=== PATIENT | female | born 1960 | race Hispanic/Latino ===

== ENCOUNTER 2018-12-31 09:56 | Emergency (ER) | payer OTHER ==
[2018-12-31] MEDS ORDERED: TETANUS/DIPHTHERIA TOXOID [ADULT] 0.5 ML VIAL IM ONE (10:16)
[2018-12-31 10:20] LABS: BASOPHILS % (AUTO) 2.2 % (0.0-5.0); EOSINOPHILS % (AUTO) 2.5 % (0.0-8.0); LYMPHOCYTES % (AUTO) 40.3 % (21.0-51.0); MEAN CORPUSCULAR HEMOGLOBIN 30.5 pg (27.0-33.0); MEAN CORPUSCULAR HGB CONC 33.1 g/dL (32.0-36.0); MEAN CORPUSCULAR VOLUME 92.1 fL (79-99); MONOCYTES % (AUTO) 14.1 % (3.0-13.0); NEUTROPHILS % (AUTO) 40.9 % (40.0-77.0); NUCLEATED RED BLOOD CELLS 0.1 % (0.0-0.19); PLATELET COUNT (AUTO) 34 K/uL (130-400); RED BLOOD CELL COUNT(AUTO) 2.72 MIL/uL (4.00-5.50); RED CELL DISTRIBUTION WIDTH 24.1 % (11.0-15.5); WHITE BLOOD COUNT (AUTO) 2.9 K/uL (4.8-10.8)
[2018-12-31 10:26] LABS: CREATININE 0.7 mg/dL (0.5-1.5); POTASSIUM 3.5 mmol/L (3.5-5.1)
[2018-12-31 10:32] LABS: ALBUMIN 2.6 g/dL (3.5-5.0); BILIRUBIN,TOTAL 3.3 mg/dL (0.2-1.0); TOTAL PROTEIN, SERUM 8.7 g/dL (6.0-8.3)
[2018-12-31 10:56] LABS: BASOPHILS % (MANUAL) 4 % (0-2); LYMPHOCYTES % (MANUAL) 28 % (22-44); MONOCYTES % (MANUAL) 8 % (2-9); PLATELET MORPHOLOGY COMMENT MARKED DECREASE; SEGMENTED NEUTROPHILS % 60 % (40-70)
== END 2018-12-31 12:44 | disposition home or self-care (01) ==
LOC: EDH 09:56
DX: S01.112A Laceration without foreign body of left eyelid and periocular area, initial encounter (principal); S40.011A Contusion of right shoulder, initial encounter; K74.69 Other cirrhosis of liver; F10.129 Alcohol abuse with intoxication, unspecified; Z87.891 Personal history of nicotine dependence; Y90.9 Presence of alcohol in blood, level not specified; W18.39XA Other fall on same level, initial encounter; Y93.01 Activity, walking, marching and hiking; Y92.89 Other specified places as the place of occurrence of the external cause; Y99.8 Other external cause status
CPT/HCPCS: 12013; 36415; 70450; 70486; 72125; 73030; 80053; 85025; 90471; 90714; 99291; G0480

== ENCOUNTER 2019-01-05 11:27 | Emergency (ER) | payer OTHER | END 2019-01-05 12:36 | disposition home or self-care (01) | LOC: EDH 11:27 | DX: S01.112D Laceration without foreign body of left eyelid and periocular area, subsequent encounter (principal); K74.60 Unspecified cirrhosis of liver; X58.XXXD Exposure to other specified factors, subsequent encounter | CPT/HCPCS: 99281 ==

== ENCOUNTER 2019-01-08 10:29 | Emergency (ER) | payer OTHER | END 2019-01-08 11:06 | disposition home or self-care (01) | LOC: EDH 10:29 | DX: S01.112D Laceration without foreign body of left eyelid and periocular area, subsequent encounter (principal); X58.XXXD Exposure to other specified factors, subsequent encounter | CPT/HCPCS: 99281 ==

== ENCOUNTER 2019-03-02 18:54 | Inpatient (IN) | payer OTHER ==
[~2019-03-02] VITALS: Ht 160 cm; Wt 62.5 kg
[2019-03-02 21:02] LABS: BASOPHILS % (AUTO) 1.7 % (0.0-5.0); EOSINOPHILS % (AUTO) 1.6 % (0.0-8.0); LYMPHOCYTES % (AUTO) 36.9 % (21.0-51.0); MEAN CORPUSCULAR HGB CONC 30.8 g/dL (32.0-36.0); MEAN CORPUSCULAR VOLUME 87.4 fL (79-99); MONOCYTES % (AUTO) 12.3 % (3.0-13.0); NEUTROPHILS % (AUTO) 47.5 % (40.0-77.0); NUCLEATED RED BLOOD CELLS 0.2 % (0.0-0.19); PLATELET COUNT (AUTO) 36 K/uL (130-400); RED BLOOD CELL COUNT(AUTO) 2.26 MIL/uL (4.00-5.50); WHITE BLOOD COUNT (AUTO) 3.2 K/uL (4.8-10.8)
[2019-03-02 21:11] LABS: CREATININE 0.9 mg/dL (0.5-1.5); HEMATOCRIT 19.8 % (36-48); POTASSIUM 3.4 mmol/L (3.5-5.1)
[2019-03-02 21:14] LABS: INR 2.26 (0.85-1.15); PARTIAL THROMBOPLASTIN TIME 32.3 SEC (26.3-35.5)
[2019-03-02 21:25] LABS: ALBUMIN 2.1 g/dL (3.5-5.0); BILIRUBIN,TOTAL 2.5 mg/dL (0.2-1.0); TOTAL PROTEIN, SERUM 7.1 g/dL (6.0-8.3)
[2019-03-02] MEDS ORDERED: M.V.I. IV [ADULT] 10 ML, THIAMINE HCL 100 MG, FOLIC ACID 1 MG in SODIUM CHLORIDE 0.9% 1... IV ONE (22:00)
[2019-03-02] MEDS ORDERED: PHYTONADIONE 10 MG/1 ML AMP ONE (22:09)
[2019-03-02] MEDS ORDERED: LACTATED RINGERS 1000ML 1,000 ML IV ONE (23:49)
[2019-03-03] VITALS (13 sets, daily range): BP systolic 127–151; BP diastolic 62–83
[2019-03-03] MEDS ORDERED: SODIUM CHLORIDE 0.9% 500ML 500 ML IV ONE (00:11)
[2019-03-03 08:31] LABS: BASOPHILS % (AUTO) 1.3 % (0.0-5.0); EOSINOPHILS % (AUTO) 2.3 % (0.0-8.0); LYMPHOCYTES % (AUTO) 30.4 % (21.0-51.0); MEAN CORPUSCULAR HEMOGLOBIN 26.9 pg (27.0-33.0); MEAN CORPUSCULAR HGB CONC 31.3 g/dL (32.0-36.0); MEAN CORPUSCULAR VOLUME 85.9 fL (79-99); MONOCYTES % (AUTO) 15.5 % (3.0-13.0); NEUTROPHILS % (AUTO) 50.5 % (40.0-77.0); NUCLEATED RED BLOOD CELLS 0.2 % (0.0-0.19); PLATELET COUNT (AUTO) 44 K/uL (130-400); RED BLOOD CELL COUNT(AUTO) 2.24 MIL/uL (4.00-5.50); RED CELL DISTRIBUTION WIDTH 18.2 % (11.0-15.5); WHITE BLOOD COUNT (AUTO) 3.1 K/uL (4.8-10.8)
[2019-03-03 08:35] LABS: HEMATOCRIT 19.2 % (36-48)
[2019-03-03 08:53] LABS: INR 1.8 (0.85-1.15); PARTIAL THROMBOPLASTIN TIME 31.4 SEC (26.3-35.5); PROTHROMBIN TIME 18.5 SEC (9.6-11.6)
[2019-03-03] MEDS ORDERED: ONDANSETRON HCL 4 MG/2 ML VIAL IVP PRN (09:15)
[2019-03-03] MEDS ORDERED: LIDOCAINE HCL-MPF 1% 2ML VIAL IV PRN (09:15)
[2019-03-03] MEDS ORDERED: ACETAMINOPHEN EXTRA STRENGTH 500 MG TABLET PO PRN (09:15)
[2019-03-03] MEDS ORDERED: POTASSIUM CHLORIDE 20 MEQ ERTAB PO PRN (09:15)
[2019-03-03] MEDS ORDERED: POTASSIUM CHLORIDE 20MEQ/100ML 100 ML IV PRN (09:15)
[2019-03-03] MEDS: CEFTRIAXONE SODIUM 2 GM VIAL IVPB SCH (09:15)
[2019-03-03] MEDS ORDERED: SODIUM CHLORIDE 0.9% 250 ML IV ONE (10:09)
[2019-03-03 10:39] LABS: APPEARANCE,URINE Clear (CLEAR); BILIRUBIN,URINE Negative (NEGATIVE); COLOR,URINE Yellow (YELLOW); GLUCOSE, URINE (UA) Negative (NEGATIVE); KETONES,URINE Negative (NEGATIVE); LEUKOCYTE ESTERASE ,URINE Negative (NEGATIVE); NITRATE,URINE Negative (NEGATIVE); OCCULT BLOOD,URINE Negative (NEGATIVE); PROTEIN,URINE Negative (NEGATIVE)
[2019-03-03] MEDS ORDERED: CEFTRIAXONE SODIUM 1 GM ONE (10:42)
[2019-03-03] MEDS ORDERED: ACETAMINOPHEN EXTRA STRENGTH 500 MG TABLET ONE (10:43)
[2019-03-03] MEDS ORDERED: ONDANSETRON HCL 4 MG/2 ML VIAL ONE (10:46)
[2019-03-03 11:09] LABS: BACTERIA,URINE None Seen /HPF (None Seen); RBC,URINE None Seen /HPF (0-1); SQUAMOUS EPITHELIAL CELL,UR 0-2 /HPF (0-2); WBC,URINE None Seen /HPF (0-1)
[2019-03-03] MEDS: LACTATED RINGERS 1000ML 1,000 ML IV SCH ×3 (11:20→23:52)
[2019-03-03] MEDS ORDERED: POTASSIUM CHLORIDE 10% ELIXIR 20 MEQ/15 ML UDCUP ONE (11:38)
--- NOTE | 2019-03-03 12:00 | NUR ---
DYSPHAGIA EVGILMER COMPLETED. DIFFICULTY WITH SOLIDS. RECOMMEND MECHANICAL SOFT/CHOPPED, THIN LIQUIDS; PILLS WHOLE WITH LIQUIDS. Addendum: 03/03/19 at 1537 by ALEXIA DREW, [address] Amended: Links added.
--- NOTE | 2019-03-03 12:15 | NUR ---
COGNITIVE-LINGUISTIC EVALUATION COMPLETED AT THIS TIME. Pt PRESENTS WITH MILD COGNITIVE DEFICITS, MODERATE ORAL MOTOR AND MILD EXPRESSIVE LANGUAGE DEFICITS. EVALUATION: Pt AAOX3, ABLE TO REQUEST WANTS AND NEEDS, AND FOLLOW SIMPLE 1-2 STEP COMMANDS. Pt WITH MODERATE ORAL DEFICITS, INTELLIGIBLE AT 70% ACCURACY AT PHRASE LEVEL. PER SON, Pt CONSTANTLY WITH SLURRED SPEECH. Pt WITH DECREASED LEFT LABIAL ROM AND STRENGTH. Pt WITH TANGENTIAL SPEECH DURING DISCOURSE, ABLE TO RE-DIRECT WITH MILD CUES. Pt WITH DECREASED CONCENTRATION ABILITIES. PER SON AT BEDSIDE, Pt IS CURRENTLY AT BASELINE. Pt WITH DEFICITS FROM PREVIOUS SEIZURE/FALL. G-CODES MOTOR SPEECH: [id number] Addendum: 03/03/19 at 1546 by ALEXIA DREW [facility] Amended: Links added.
--- NOTE | 2019-03-03 12:32 | NUR ---
DCP: HOME / [facility] App[facility] on met with pt and son Rodney Braga [phone] and daughter Dinora Jones [phone]. Son reports that pt lives with him in his 2nd story apartment where she fell after drinking. Pt has hx of advanced cirrhosis. Son found multiple bottles of liquor, beer, pain meds in her room after fall. Son states he has made appt with [facility] for screening and possible drug rehab and it is on Mar 05. Pt states that she wants help and is willing to keep appt. Pt has no DME or in home care services or PCP. Per Javier at [facility], pt and family are bad at about follow up on SSD application process. Javier spoke to them again, family states they will cooperate. DC plan is home Addendum: 03/03/19 at 1241 by DANNY KELLEY SS Amended: Links added.
[2019-03-03] MEDS ORDERED: CHLORDIAZEPOXIDE HCL 25 MG CAP PO PRN ×2 (12:45)
[2019-03-03] MEDS ORDERED: LORAZEPAM 2 MG/ML 1 ML VIAL IVP PRN (12:45)
[2019-03-03] MEDS ORDERED: PHARMACY COMMUNICATION MISC PRN (12:45)
[2019-03-03] MEDS ORDERED: LORAZEPAM 2 MG/ML 1 ML VIAL ONE (13:06)
[2019-03-03 15:21] LABS: INR 1.82 (0.85-1.15); PROTHROMBIN TIME 18.7 SEC (9.6-11.6)
--- NOTE | 2019-03-03 15:35 | NUR ---
PT WAS ADMITTED FROM ER AND PT WAS ASSESSED NEUROLOGICALLY. PT AT PRESENT IS AWAKE AND ALERT BUT HER SPEECH IS SLURRED AND KNOWS NAME ONLY. UNABLE TO SAY WHERE SHE IS OR WHAT YEAR IT IS. PT HAS NO FAMILY AROUND AND UNABLE TO DO THE DATABASE OR MEDICAL HISTORY. PT HAS FREQUENT HOSPITAL VISITS BUT TO ER NO ADMISSIONS. SON HAD BEEN WITH PATIENT IN ER BUT HAS GONE HOME. HEAD DRESSING IS SATURATED TO THE OCCIPITAL AREA AND PT HAS HAD BLOOD TRANSFUSIONS OF BLOOD PRODUCTS AND WILL CHECK HER BLOOD COUNT. WILL CONTINUE TO MONITOR AND ASSESS NEUROLOGICALLY.
[2019-03-03 17:28] LABS: HEMATOCRIT 23.4 % (36-48)
[2019-03-03] MEDS: LORAZEPAM 2 MG/ML 1 ML VIAL IVP PRN ×2 (18:24→21:50)
--- NOTE | 2019-03-03 18:30 | NUR ---
PT'S DAUGHTER CALLED AND WAS UPDATED WITH PRESENT STATUS AND WAS ADVISED NEEDED INFORMATION ON PT FAR HER MEDICAL HISTORY AND DATABASE INFORMATION, DAUGHTER STATES THAT SHE IS UNABLE TO COME IN NOW DUE TO HER NOT HAVING A SITTER FOR HER 4 KIDS AND IT BEING COLD. SHE STATED THAT SHE WOULD COME IN THE MORNING. DAUGHTER LEFT NAME AND PHONE NUMBER, SPENSER FROST PHONE # [phone]. ADVISED MARIO IBARRA RN CHARGE NURSE OF FAMILY SITUATION.
--- NOTE | 2019-03-03 18:40 | NUR ---
PT WAS ADVISED OF DAUGHTER'S PHONE CALL AND PT IS REQUESTING SOMETHING FOR HER SHAKES. PT WAS MEDICATED WITH ATIVAN 2 MG IV. PT HAD A HGB OF 7.5 AND A UNIT OF BLOOD WAS STARTED.
[2019-03-03] MEDS: PANTOPRAZOLE 40 MG/VIAL IVP SCH (21:47)
[2019-03-03] MEDS: LACTULOSE 20 GM/30 ML UDCUP PO SCH (21:47)
[2019-03-03 23:18] LABS: HEMATOCRIT 27.6 % (36-48)
[2019-03-04] VITALS (20 sets, daily range): BP systolic 110–154; BP diastolic 60–98
[2019-03-04 03:53] LABS: INR 1.97 (0.85-1.15); PARTIAL THROMBOPLASTIN TIME 32.8 SEC (26.3-35.5); PROTHROMBIN TIME 20.2 SEC (9.6-11.6)
[2019-03-04 04:01] LABS: HEMATOCRIT 26.5 % (36-48); MEAN CORPUSCULAR HEMOGLOBIN 28.9 pg (27.0-33.0); MEAN CORPUSCULAR HGB CONC 33.3 g/dL (32.0-36.0); MEAN CORPUSCULAR VOLUME 86.8 fL (79-99); NUCLEATED RED BLOOD CELLS 0.2 % (0.0-0.19); PLATELET COUNT (AUTO) 32 K/uL (130-400); RED BLOOD CELL COUNT(AUTO) 3.05 MIL/uL (4.00-5.50); RED CELL DISTRIBUTION WIDTH 16.3 % (11.0-15.5); WHITE BLOOD COUNT (AUTO) 5.6 K/uL (4.8-10.8)
[2019-03-04 04:05] LABS: ALBUMIN 2.2 g/dL (3.5-5.0); BILIRUBIN,TOTAL 4.9 mg/dL (0.2-1.0); CREATININE 0.8 mg/dL (0.5-1.5); POTASSIUM 3.5 mmol/L (3.5-5.1); TOTAL PROTEIN, SERUM 7.2 g/dL (6.0-8.3)
[2019-03-04] MEDS: THIAMINE HCL 100 MG TABLET PO SCH (09:06)
[2019-03-04] MEDS: PANTOPRAZOLE 40 MG/VIAL IVP SCH ×2 (09:06→22:21)
[2019-03-04] MEDS: LACTULOSE 20 GM/30 ML UDCUP PO SCH ×2 (09:06→22:21)
[2019-03-04] MEDS: CEFTRIAXONE SODIUM 2 GM VIAL IVPB SCH (09:06)
[2019-03-04] MEDS: M.V.I. IV [ADULT] 10 ML, FOLIC ACID 1 MG, THIAMINE HCL 100 MG in SODIUM CHLORIDE 0.9% 1... IV SCH (09:28)
[2019-03-04] MEDS: LACTATED RINGERS 1000ML 1,000 ML IV SCH ×2 (14:00→22:53)
--- NOTE | 2019-03-04 16:45 | NUR ---
TRANSFERRED FROM ICU RECEIVED PATIENT IN ROOM 318, ARRIVED VIA WHEELCHAIR WITH NURSE. PATIENT IS AAOX2. DENIES FEELING ANY PAIN OR DISCOMFORT AT THIS TIME. INFUSING BANANA BAG TO RIGHT FOREARM 20G, NO SIGNS OF INFILTRATION. MONITORED ON TELEMETRY.
[2019-03-05 03:00] VITALS: BP 126/75
[2019-03-05 05:14] LABS: BASOPHILS % (AUTO) 1.2 % (0.0-5.0); EOSINOPHILS % (AUTO) 4.7 % (0.0-8.0); LYMPHOCYTES % (AUTO) 23.8 % (21.0-51.0); MEAN CORPUSCULAR HEMOGLOBIN 28.5 pg (27.0-33.0); MEAN CORPUSCULAR HGB CONC 32.9 g/dL (32.0-36.0); MEAN CORPUSCULAR VOLUME 86.6 fL (79-99); MONOCYTES % (AUTO) 18.5 % (3.0-13.0); NEUTROPHILS % (AUTO) 51.8 % (40.0-77.0); NUCLEATED RED BLOOD CELLS 0.2 % (0.0-0.19); PLATELET COUNT (AUTO) 36 K/uL (130-400); RED BLOOD CELL COUNT(AUTO) 2.88 MIL/uL (4.00-5.50); RED CELL DISTRIBUTION WIDTH 16.9 % (11.0-15.5); WHITE BLOOD COUNT (AUTO) 4.9 K/uL (4.8-10.8)
[2019-03-05 05:47] LABS: CREATININE 0.8 mg/dL (0.5-1.5)
[2019-03-05 05:49] LABS: POTASSIUM 2.9 mmol/L (3.5-5.1)
[2019-03-05] MEDS: POTASSIUM CHLORIDE 10% ELIXIR 20 MEQ/15 ML UDCUP PO PRN ×2 (06:17→10:30)
[2019-03-05 07:30] VITALS: BP 127/68
--- NOTE | 2019-03-05 08:33 | NUR ---
PATIENT UPDATE Pt drowsy to lethargic at the beginning of the shift, ciwa score of 7. Tremors most prominent with both arms extended in front of the patient. K+ this am at 2.0, started on the hypokalemia protocol, 20meq kcl elixir given with the orange juice and 20meq kcl ivpb hung. Pt restless twice this am when she had an episode of a major bowel movement in the bed, was given lactulose for the liver cirrhosis. Took off the dressing on the occipital area where she had that laceration sustained from the fall stapled in er. Attempted climbing out of bed with the next major bm, noted some oozing coming from the backof the head with the pt saying that "maybe 1 of the lisbeth came off at the hernandez of my head". Head cleansed with saline, 4x4 pressure dressing applied for right now secured with abd pad. Secured with the brown tape. Am nurse asked to get the md making rounds this am to assess the status of the occipital laceration once it gets more stable. Pt more calm and relaxed after the bedbath, will continue to monitor the status of the occipital laceration.
[2019-03-05] MEDS: THIAMINE HCL 100 MG TABLET PO SCH (08:58)
[2019-03-05] MEDS: PANTOPRAZOLE SODIUM 40 MG TABLET.DR PO SCH ×2 (08:58→21:51)
[2019-03-05] MEDS: LACTULOSE 20 GM/30 ML UDCUP PO SCH ×2 (08:59→21:51)
[2019-03-05] MEDS: CEFTRIAXONE SODIUM 2 GM VIAL IVPB SCH (09:05)
[2019-03-05 11:00] VITALS: BP 100/53
[2019-03-05] MEDS: M.V.I. IV [ADULT] 10 ML, FOLIC ACID 1 MG, THIAMINE HCL 100 MG in SODIUM CHLORIDE 0.9% 1... IV SCH (11:59)
--- NOTE | 2019-03-05 12:10 | NUR ---
CLIMBED OUT OF BED DESPITE BEDRAILS BEING UP X4. DID NOT USE THE CALL BUTTON. STATES SHE WANTED TO CLEAN HERSELF. BM NOTED. HYGEINE GIVEN. ASSISTED BACK TO BED. ENCOURAGED HER TO USE THE CALL BUTTON TO CALL. RETURN DEMONSTRATED SUCCESSFULLY HOW TO USE THE CALL MARKHAM TO CALL FOR ASSISTANCE. WILL CONTINUE TO MONITOR. WAS SEEN BY SOCORRO RODNEY NP DURING ROUNDS. ORDERS NOTED. Addendum: 03/05/19 at 2037 by JACLYN VICTORIA RN RN Amended: Links added.
[2019-03-05] MEDS ORDERED: THIA100T91 PO (12:53)
[2019-03-05] MEDS ORDERED: LACT PO (12:53)
[2019-03-05 16:00] VITALS: BP 120/70
--- NOTE | 2019-03-05 16:00 | NUR ---
DC PLANNING- [facility] APPT TODAY/NOT TODAY??? REC REPORT FORM CM ON 2ND FLOOR- TRANSFER. [facility] INTAKE APPOINTMENT TODAY, ADVISED [facility] LERMA THAT IF APPT IS AN INTAKE, AND IF PT READY FOR DISCHARGE, WE SHOULD BGET PT THER- OTHERWISE SHE MAY HAVE TO WAIT FOR A SPOT.- CLAL TO SON TO CLARIFY WHEN IS APPOINTMENT- NOTS SAY 14TH, PT IS SAYING "TOMORROW' CALL TO SON, HE STATES HE CALLED [facility] TO ADVISED PT WOULD MISS APPT AND RE SCHEDULE, AND WAS TOLD PT IS NOT SHOWING UP IN THEIR SYSTEM EVEN HAVING AN INTAKE APPOINTMENT. PASSED S INFO ON TO [facility] AND TO BARREL MAKER MONICA. NO DEADLINE TO DISCHARGE A PATIENT FOR AN APPOINTMENT THAT SHE DOES NOT HAVE. PT NOTED BY CM TO BE VERY RESTLESS AND CONFUSED, ON WITHDRAWAL PROTOCOL. PATIENT STATES SHE WANTS TO BE DISCHARGED TO [facility] TO SHOW UP A WALK IN . CM TO FOLLOW IN AM
--- NOTE | 2019-03-05 16:10 | NUR ---
sPOKE WITH SON (PATRICIA) REGARDING DISCHARGE ORDER. INFORMED HIM THAT Pt. HAS A DISCHARGE ORDER AND WILL BE DISCHARGED TONIGHT. HE REMARKED THAT HE WILL BE COMING BACK TO THE HOSPITAL AT 7PM
--- NOTE | 2019-03-05 18:24 | NUR ---
Re paged Dr. Stephenson, admitting MD, for discharge orders. Awaiting call back.
--- NOTE | 2019-03-05 20:30 | NUR ---
CALLED RANDALL GOMEZ AT [phone], NO ANSWER AND NO VOICEMAIL PROMPT
[2019-03-05 21:52] VITALS: BP 122/63
--- NOTE | 2019-03-05 22:00 | NUR ---
TRANSFER OF CARE NO RESPONSE RECEIVED FROM THE SON WHO'S SUPPOSED TO PICK THE PT UP FOR DISCHARGE AT 1900, NO RESPONSE RECEIVED FROM THE PHONE CALLS MADE BY THE AM NURSE. PT MOVED TO RM 309 WITH A SITTER TO WATCH THE PT SINCE SHE GETS IMPULSIVE AND CLIMBS OUT OF BED AT RANDOM. REPORT GIVEN TO TRAMAINE RN WHO WILL ASSUME CARE OF PATIENT.
[2019-03-06] VITALS: BP 134/75
[2019-03-06 04:00] VITALS: BP 144/75
[2019-03-06] MEDS: LACTATED RINGERS 1000ML 1,000 ML IV SCH ×2 (06:00→06:34)
[2019-03-06 08:00] VITALS: BP 137/74
--- NOTE | 2019-03-06 10:14 | NUR ---
FAMILY MEMBERS Received call from [employer] Observer stating patient's son was on the phone in the patient's room. Went to room to answer and he was talking to patient on the phone. Per patient, candice Butterfield hang up before nurse could talk to him. Patient stated candice Butterfield was working and will pick her up after work, which ends at 5:00pm Nurse contacted candice Stevens at [phone] and left message for him to call nurse back; pending for him to call back to see if he can come pick patient up. Patient unable to provide anybody's phone numbers.
[2019-03-06] MEDS: CEFTRIAXONE SODIUM 2 GM VIAL IVPB SCH (10:49)
[2019-03-06] MEDS: PANTOPRAZOLE SODIUM 40 MG TABLET.DR PO SCH (10:49)
[2019-03-06] MEDS: THIAMINE HCL 100 MG TABLET PO SCH (10:49)
[2019-03-06] MEDS: LACTULOSE 20 GM/30 ML UDCUP PO SCH (10:55)
== END 2019-03-06 11:45 | disposition home or self-care (01) | DRG 86 ==
LOC: EDH 18:54 → EDHIP 18:55 → 2CH 03-03 14:55 → 3CH 03-04 16:46 → 3BH 03-05 21:40
PROVIDERS: ADMIT Surgery; ATTEND Surgery
PROC: 30233N1 Transfusion of Nonautologous Red Blood Cells into Peripheral Vein, Percutaneous Approach (ICD-10-PCS; 2019-03-02)
PROC: 30233R1 Transfusion of Nonautologous Platelets into Peripheral Vein, Percutaneous Approach (ICD-10-PCS; 2019-03-02)
PROC: 30233K1 Transfusion of Nonautologous Frozen Plasma into Peripheral Vein, Percutaneous Approach (ICD-10-PCS; principal; 2019-03-03)
DX: S06.5X0A Traumatic subdural hemorrhage without loss of consciousness, initial encounter (principal); D68.4 Acquired coagulation factor deficiency; W10.9XXA Fall (on) (from) unspecified stairs and steps, initial encounter; F10.129 Alcohol abuse with intoxication, unspecified; D64.9 Anemia, unspecified; S10.93XA Contusion of unspecified part of neck, initial encounter; K74.60 Unspecified cirrhosis of liver; E87.6 Hypokalemia; S01.01XA Laceration without foreign body of scalp, initial encounter; Y90.8 Blood alcohol level of 240 mg/100 ml or more; Y92.009 Unspecified place in unspecified non-institutional (private) residence as the place of occurrence of the external cause; Y93.89 Activity, other specified; Y99.8 Other external cause status
CPT/HCPCS: 36415; 36430; 70450; 70486; 71045; 72125; 80048; 80053; 81001; 82140; 82270; 82550; 84132; 84484; 85014; 85018; 85025; 85027; 85060; 85610; 85730; 86850; 86900; 86901; 86922; 86927; 92522; 92610; 93005; C9113; G0378; G0480; J0696; J2060; J2405; J3411; J3430; J3480; J3490; J7030; J7040; J7120; P9016; P9017; P9034

== ENCOUNTER 2019-03-11 00:30 | Inpatient (IN) | payer OTHER ==
[~2019-03-11] VITALS: Ht 157.5 cm; Wt 66.7 kg
[~2019-03-11 00:30] MED LIST: LACT PO; THIA100T91 PO
[2019-03-11 01:18] LABS: BASOPHILS % (AUTO) 0.7 % (0.0-5.0); EOSINOPHILS % (AUTO) 5.2 % (0.0-8.0); HEMATOCRIT 22.5 % (36-48); MEAN CORPUSCULAR HEMOGLOBIN 28.3 pg (27.0-33.0); MEAN CORPUSCULAR VOLUME 88.4 fL (79-99); MONOCYTES % (AUTO) 24.4 % (3.0-13.0); NEUTROPHILS % (AUTO) 39.7 % (40.0-77.0); NUCLEATED RED BLOOD CELLS 0.2 % (0.0-0.19); RED BLOOD CELL COUNT(AUTO) 2.55 MIL/uL (4.00-5.50); RED CELL DISTRIBUTION WIDTH 18.9 % (11.0-15.5); WHITE BLOOD COUNT (AUTO) 4.1 K/uL (4.8-10.8)
[2019-03-11 01:31] LABS: CREATININE 0.7 mg/dL (0.5-1.5); POTASSIUM 3.3 mmol/L (3.5-5.1)
[2019-03-11 01:32] LABS: INR 1.89 (0.85-1.15); PARTIAL THROMBOPLASTIN TIME 32.1 SEC (26.3-35.5); PROTHROMBIN TIME 19.4 SEC (9.6-11.6)
[2019-03-11 01:38] LABS: ALBUMIN 2.1 g/dL (3.5-5.0); TOTAL PROTEIN, SERUM 7.2 g/dL (6.0-8.3)
[2019-03-11 01:42] LABS: PLATELET COUNT (AUTO) 112 K/uL (130-400)
[2019-03-11] MEDS ORDERED: PHYTONADIONE 10 MG/1 ML AMP ONE (02:53)
[2019-03-11] MEDS ORDERED: SODIUM CHLORIDE 0.9% 1000ML 1,000 ML IV ONE (03:59)
[2019-03-11] MEDS ORDERED: ONDANSETRON HCL 4 MG/2 ML VIAL ONE (03:59)
[2019-03-11 04:24] LABS: BASOPHILS % (AUTO) 1.5 % (0.0-5.0); EOSINOPHILS % (AUTO) 4.3 % (0.0-8.0); LYMPHOCYTES % (AUTO) 27.1 % (21.0-51.0); MEAN CORPUSCULAR HEMOGLOBIN 28.4 pg (27.0-33.0); MEAN CORPUSCULAR HGB CONC 32.3 g/dL (32.0-36.0); MEAN CORPUSCULAR VOLUME 87.9 fL (79-99); NEUTROPHILS % (AUTO) 41.1 % (40.0-77.0); NUCLEATED RED BLOOD CELLS 0.2 % (0.0-0.19); RED BLOOD CELL COUNT(AUTO) 2.28 MIL/uL (4.00-5.50); RED CELL DISTRIBUTION WIDTH 19.3 % (11.0-15.5); WHITE BLOOD COUNT (AUTO) 4.5 K/uL (4.8-10.8)
[2019-03-11 04:50] LABS: PLATELET COUNT (AUTO) 120 K/uL (130-400)
[2019-03-11 04:51] LABS: PLATELET MORPHOLOGY LARGE PLTS PRESENT
[2019-03-11] MEDS ORDERED: POTASSIUM CHLORIDE 20MEQ/100ML 100 ML IV PRN ×3 (05:45→20:15)
[2019-03-11] MEDS ORDERED: MAGNESIUM 2GM PREMIX 50ML 50 ML IV PRN (05:45)
[2019-03-11] MEDS ORDERED: LIDOCAINE HCL-MPF 1% 2ML VIAL IV PRN ×3 (05:45→20:15)
[2019-03-11 06:05] VITALS: BP 112/59
[2019-03-11 07:17] LABS: BASOPHILS % (AUTO) 1.3 % (0.0-5.0); EOSINOPHILS % (AUTO) 2.1 % (0.0-8.0); LYMPHOCYTES % (AUTO) 19.5 % (21.0-51.0); MEAN CORPUSCULAR HEMOGLOBIN 28.4 pg (27.0-33.0); MEAN CORPUSCULAR HGB CONC 32.2 g/dL (32.0-36.0); MEAN CORPUSCULAR VOLUME 88.4 fL (79-99); MONOCYTES % (AUTO) 24.5 % (3.0-13.0); NEUTROPHILS % (AUTO) 52.6 % (40.0-77.0); NUCLEATED RED BLOOD CELLS 0.2 % (0.0-0.19); PLATELET COUNT (AUTO) 45 K/uL (130-400); RED BLOOD CELL COUNT(AUTO) 2.19 MIL/uL (4.00-5.50); RED CELL DISTRIBUTION WIDTH 18.9 % (11.0-15.5); WHITE BLOOD COUNT (AUTO) 4.7 K/uL (4.8-10.8)
[2019-03-11 07:22] LABS: HEMATOCRIT 19.4 % (36-48)
[2019-03-11 07:34] LABS: ALBUMIN 1.9 g/dL (3.5-5.0); CREATININE 0.7 mg/dL (0.5-1.5); MAGNESIUM 1.6 mg/dL (1.80-2.40); POTASSIUM 3.5 mmol/L (3.5-5.1); TOTAL PROTEIN, SERUM 6.4 g/dL (6.0-8.3)
[2019-03-11 08:00] VITALS: BP 116/62
[2019-03-11] MEDS: M.V.I. IV [ADULT] 10 ML, FOLIC ACID 1 MG, THIAMINE HCL 100 MG in SODIUM CHLORIDE 0.9% 1... IV SCH ×2 (08:21→21:20)
--- NOTE | 2019-03-11 09:20 | NUR ---
Patient notified of blood transfusion order for occipital bleed s/p fall. Patient nodded head. Able to verbalize name, date of , and stated today was Saturday, but today is Saturday. Attained consent from family member Dinora Jones, daughter by telephone, second nurse verification with Cheyenne Grullon RN, charge nurse.
--- NOTE | 2019-03-11 09:55 | NUR ---
Pretransfusion vitals at 09:40 T98.8, R12, P93, BP 122/58. Patient educated on symptoms of blood transfusion reaction and to report any symptoms that present. Patient answered, "Okay." Patient presents as very sleepy. Does arise to verbal stimulation. Answers questions appropriately. Able to follow commands and move extremities as requested. Transfusion start time 9:55 to 20g LFA PIV at 70 mL/hr with infusion pump. Denies pain, shortness of breath, rash or general feeling of being unwell.
--- NOTE | 2019-03-11 10:00 | NUR ---
Patient tolerating transfusion, denies pain, shortness of breath, rash or difficulty breathing. Post 5 minute transfusion vitals T98.7, R13, HR98, BP 138/58. Transfusion rate increased to 125 mL/hr. No signs of distress noted. Will continue to monitor.
--- NOTE | 2019-03-11 10:10 | NUR ---
Patient reports needing to void. Assisted to place bedpan. 200 mL yellow urine voided. 15 minutes transfusion vitals T99.2, R12, HR93, BP 117/43. Patient able to verbalize name, date of . No signs of distress noted. Continue with blood transfusion at 125 mL/hr to LFA 20g. Bed low, locked. Call kiran within reach. Patient verbalized how to use call kiran if assistance needed.
[2019-03-11 12:00] VITALS: BP 131/62
[2019-03-11 13:22] LABS: HEMATOCRIT 23.1 % (36-48)
--- NOTE | 2019-03-11 13:28 | NUR ---
Reviewed H&P, labs and morning interventions for patient. Reported documentation of FFP, platelets, however these have not been administered. Per Dr. Heron Peterson, proceed with unit of fresh frozen plasma.
--- NOTE | 2019-03-11 15:15 | NUR ---
INITIAL MET W PATIENT- WELL KNOWN TO THIS CM, LIVES WITH SON, STATES USES NO DME, STAIRS AT HOME-(FELL ON STAIRS ON LAST ADMIT. DENIES RECENT DRINKING "EXCEPT A HALF BEER YESTERDAY; NO ONE WILL BUY ME ALCOHOL ANY MORE, NOR LET ME GO GET IT" PATIENT HERE BECAUSE OF BLEEDING FROM WOUND FROM LAST ADMIT NO INSURANCE, MIMIMAL SUPPORT; STATES SHE WILL FOLLOW UP AT [facility] WHEN SHE IS DISCHARGED FROM HOSPITAL Addendum: 03/11/19 at 1520 by NIKIA GRANADO RN Amended: Links added.
[2019-03-11 16:00] VITALS: BP 139/64
[2019-03-11] MEDS: FAMOTIDINE/PF 20 MG/2 ML VIAL IV SCH ×2 (18:23→21:20)
[2019-03-11 20:00] VITALS: BP 127/63
[2019-03-11] MEDS ORDERED: POTASSIUM CHLORIDE 20 MEQ ERTAB PO PRN (20:15)
[2019-03-11] MEDS ORDERED: POTASSIUM CHLORIDE 10% ELIXIR 20 MEQ/15 ML UDCUP PO PRN (20:15)
[2019-03-11] MEDS ORDERED: POTASSIUM CHLORIDE 20 MEQ ERTAB PO ONE (20:27)
[2019-03-11] MEDS ORDERED: ALPRAZOLAM 0.25 MG TABLET ONE (22:00)
[2019-03-11] MEDS ORDERED: ALPRAZOLAM 0.25 MG TABLET PO ONE (22:55)
[2019-03-12] VITALS: BP 129/64
[2019-03-12 03:55] VITALS: BP 119/64
--- NOTE | 2019-03-12 04:07 | NUR ---
patient complains of left side molar pain. paged Brody Bryant for pain medication. she ordered 650 mg acetaminophen prn for pain.
[2019-03-12] MEDS ORDERED: ACETAMINOPHEN 325 MG TAB ONE (04:09)
[2019-03-12] MEDS: ACETAMINOPHEN 325 MG TAB PO PRN ×2 (04:12→15:32)
[2019-03-12 05:00] LABS: BASOPHILS % (AUTO) 1.4 % (0.0-5.0); EOSINOPHILS % (AUTO) 4.4 % (0.0-8.0); LYMPHOCYTES % (AUTO) 27.6 % (21.0-51.0); MEAN CORPUSCULAR HEMOGLOBIN 28.1 pg (27.0-33.0); MEAN CORPUSCULAR HGB CONC 32.1 g/dL (32.0-36.0); MEAN CORPUSCULAR VOLUME 87.5 fL (79-99); MONOCYTES % (AUTO) 21.7 % (3.0-13.0); NEUTROPHILS % (AUTO) 44.9 % (40.0-77.0); NUCLEATED RED BLOOD CELLS 0.2 % (0.0-0.19); PLATELET COUNT (AUTO) 48 K/uL (130-400); RED BLOOD CELL COUNT(AUTO) 2.74 MIL/uL (4.00-5.50); RED CELL DISTRIBUTION WIDTH 19.5 % (11.0-15.5); WHITE BLOOD COUNT (AUTO) 4.4 K/uL (4.8-10.8)
[2019-03-12 05:12] LABS: INR 1.94 (0.85-1.15); PARTIAL THROMBOPLASTIN TIME 28.5 SEC (26.3-35.5); PROTHROMBIN TIME 19.5 SEC (9.6-11.6)
[2019-03-12 05:59] LABS: ALBUMIN 2.2 g/dL (3.5-5.0); BILIRUBIN,TOTAL 5.4 mg/dL (0.2-1.0); CREATININE 0.7 mg/dL (0.5-1.5); POTASSIUM 3.5 mmol/L (3.5-5.1); TOTAL PROTEIN, SERUM 6.8 g/dL (6.0-8.3)
[2019-03-12 08:00] VITALS: BP 107/56
[2019-03-12] MEDS: FAMOTIDINE/PF 20 MG/2 ML VIAL IV SCH (09:27)
[2019-03-12 11:57] VITALS: BP 116/73
[2019-03-12] MEDS: M.V.I. IV [ADULT] 10 ML, FOLIC ACID 1 MG, THIAMINE HCL 100 MG in SODIUM CHLORIDE 0.9% 1... IV SCH (12:14)
[2019-03-12] MEDS ORDERED: VIT1TAB.7 PO (13:42)
--- NOTE | 2019-03-12 14:08 | NUR ---
Nutrition intervention: Nutrition notification as trigger. Pt admitted for bleeding to incision site. Pt currently on GI soft/bland diet with fair to good po intake. Recommend: Continue current diet therapy. Provide MVI w/Fe once daily. Consult BRUNO as nutrition concerns arise. Addendum: 03/12/19 at [address] Amended: Links added.
[2019-03-12 15:43] VITALS: BP 119/68
== END 2019-03-12 17:40 | disposition home or self-care (01) | DRG 808 ==
LOC: EDH 00:30 → EDHIP 00:31 → 3CH 05:19
PROVIDERS: ADMIT Internal Medicine; ATTEND Internal Medicine
PROC: 30233K1 Transfusion of Nonautologous Frozen Plasma into Peripheral Vein, Percutaneous Approach (ICD-10-PCS; principal; 2019-03-11)
PROC: 30233N1 Transfusion of Nonautologous Red Blood Cells into Peripheral Vein, Percutaneous Approach (ICD-10-PCS; 2019-03-11)
DX: D61.818 Other pancytopenia (principal); E43 Unspecified severe protein-calorie malnutrition; D62 Acute posthemorrhagic anemia; K74.60 Unspecified cirrhosis of liver; F10.129 Alcohol abuse with intoxication, unspecified; E87.6 Hypokalemia; S01.01XD Laceration without foreign body of scalp, subsequent encounter; Z88.8 Allergy status to other drugs, medicaments and biological substances; Z68.26 Body mass index [BMI] 26.0-26.9, adult; W18.39XD Other fall on same level, subsequent encounter
CPT/HCPCS: 36415; 36430; 80053; 82140; 82550; 83735; 85014; 85018; 85025; 85610; 85730; 86850; 86900; 86901; 86922; 86927; 97039; G0378; G0480; J2405; J3411; J3430; J3490; J7030; P9016; P9017

== ENCOUNTER 2019-05-06 00:25 | Inpatient (IN) | payer OTHER ==
[~2019-05-06] VITALS: Ht 157.5 cm; Wt 55.1 kg
[~2019-05-06 00:25] MED LIST changes: +VIT1TAB.7 PO
[2019-05-06] MEDS ORDERED: ONDANSETRON HCL 4 MG/2 ML VIAL ONE ×2 (01:12→18:51)
[2019-05-06] MEDS ORDERED: SODIUM CHLORIDE 0.9% 1000ML 1,000 ML IV ONE ×3 (01:13→05:29)
[2019-05-06 01:29] LABS: BASOPHILS % (AUTO) 1.2 % (0.0-5.0); EOSINOPHILS % (AUTO) 1.6 % (0.0-8.0); HEMATOCRIT 29.9 % (36-48); LYMPHOCYTES % (AUTO) 28.7 % (21.0-51.0); MEAN CORPUSCULAR HEMOGLOBIN 27.9 pg (27.0-33.0); MEAN CORPUSCULAR HGB CONC 31.8 g/dL (32.0-36.0); MEAN CORPUSCULAR VOLUME 87.7 fL (79-99); MONOCYTES % (AUTO) 15.6 % (3.0-13.0); NEUTROPHILS % (AUTO) 52.5 % (40.0-77.0); PLATELET COUNT (AUTO) 54 K/uL (130-400); RED BLOOD CELL COUNT(AUTO) 3.41 MIL/uL (4.00-5.50); RED CELL DISTRIBUTION WIDTH 22.9 % (11.0-15.5); WHITE BLOOD COUNT (AUTO) 2.4 K/uL (4.8-10.8)
[2019-05-06 01:50] LABS: ALANINE AMINOTRANSFERASE 54 U/L (12-78); ALBUMIN 2.5 g/dL (3.5-5.0); ALCOHOL, BLOOD < 3 mg/dL (0-10); AMMONIA 42 umol/L (11-32); ASPARTATE AMINOTRANSFERASE 113 U/L (10-37); BILIRUBIN,TOTAL 3.3 mg/dL (0.2-1.0); CARBON DIOXIDE 25 mmol/L (21-32); CHLORIDE 98 mmol/L (101-111); CREATININE 1.3 mg/dL (0.5-1.5); GLOMERULAR FILTR. RATE CALC 45 mL/min (>60); GLUCOSE,RANDOM 103 mg/dL (70-105); LIPASE 130 U/L (114-286); SODIUM SERUM 137 mmol/L (136-145); TOTAL PROTEIN, SERUM 8.2 g/dL (6.0-8.3); UREA NITROGEN, BLOOD 9 mg/dL (7-18)
[2019-05-06 01:51] LABS: INR 2.16 (0.85-1.15); PARTIAL THROMBOPLASTIN TIME 28.7 SEC (26.3-35.5)
[2019-05-06 01:53] LABS: CREATINE KINASE, TOTAL 528 U/L (21-232); POTASSIUM 2.7 mmol/L (3.5-5.1)
[2019-05-06 01:59] LABS: BASOPHILS % (MANUAL) 4 % (0-2); LYMPHOCYTES % (MANUAL) 14 % (22-44); MONOCYTES % (MANUAL) 14 % (2-9); SEGMENTED NEUTROPHILS % 68 % (40-70)
[2019-05-06 02:00] LABS: MAN.DIFF COMMENT-IMPRESSION MANUAL DIFFERENTIAL
[2019-05-06 02:01] LABS: PLATELET MORPHOLOGY COMMENT MARKED DECREASE
[2019-05-06] MEDS ORDERED: SODIUM CHLORIDE 0.9% 1000ML 1,000 ML IV SCH ×2 (03:08→03:15)
[2019-05-06] MEDS ORDERED: PROCHLORPERAZINE EDISYLATE 10 MG/2 ML VIAL IV PRN (03:15)
[2019-05-06] MEDS: POTASSIUM CHLORIDE 10MEQ/100ML 10 MEQ/100 ML ML IV SCH (03:15)
[2019-05-06] MEDS ORDERED: ACETAMINOPHEN 650 MG SUPPOSITORY RC PRN ×2 (03:15)
[2019-05-06] MEDS ORDERED: NITROGLYCERIN 0.4 MG SL TAB SL PRN (03:15)
[2019-05-06] MEDS ORDERED: POTASSIUM CHLORIDE 20MEQ/100ML 200 ML IV ONE (03:24)
[2019-05-06 04:04] LABS: APPEARANCE,URINE Clear (CLEAR); BILIRUBIN,URINE Small (NEGATIVE); COLOR,URINE Dark Yellow (YELLOW); GLUCOSE, URINE (UA) Negative (NEGATIVE); KETONES,URINE 15 mg/dL (NEGATIVE); LEUKOCYTE ESTERASE ,URINE Negative (NEGATIVE); NITRATE,URINE Negative (NEGATIVE); OCCULT BLOOD,URINE Negative (NEGATIVE); PH,URINE 6.5 (5.0-8.0); PROTEIN,URINE Negative (NEGATIVE)
[2019-05-06 04:12] LABS: AMPHET/METH SCREEN,URINE NEGATIVE (NEGATIVE); BARBITURATE SCREEN, URINE NEGATIVE (NEGATIVE); BENZODIAZEPINES SCREEN,URINE POSITIVE (NEGATIVE); CANNABINOID SCREEN,URINE NEGATIVE (NEGATIVE); COCAINE SCREEN,URINE NEGATIVE (NEGATIVE); OPIATE SCREEN,URINE NEGATIVE (NEGATIVE); PHENCYCLIDINE SCREEN,URINE NEGATIVE (NEGATIVE)
[2019-05-06] MEDS ORDERED: PROCHLORPERAZINE EDISYLATE 10 MG/2 ML VIAL ONE (05:24)
[2019-05-06 07:28] LABS: CREATINE KINASE, TOTAL 413 U/L (21-232)
[2019-05-06 07:50] LABS: AMMONIA 16 umol/L (11-32)
[2019-05-06] MEDS: FAMOTIDINE/PF 20 MG/2 ML VIAL IV SCH ×2 (09:00→21:00)
[2019-05-06] MEDS ORDERED: LIDOCAINE HCL-MPF 1% 2ML VIAL IV PRN (10:00)
[2019-05-06] MEDS ORDERED: POTASSIUM CHLORIDE 10% ELIXIR 20 MEQ/15 ML UDCUP PO PRN (10:00)
[2019-05-06] MEDS ORDERED: POTASSIUM CHLORIDE 20MEQ/100ML 100 ML IV PRN (10:00)
[2019-05-06 12:01] LABS: POTASSIUM 3.1 mmol/L (3.5-5.1)
[2019-05-06] MEDS ORDERED: POTASSIUM CHLORIDE 20 MEQ ERTAB PO ONE (15:55)
--- NOTE | 2019-05-06 19:29 | NUR ---
INITIAL MET W PT IN ED JAYCOBWA 4 PT AUBREE BUT ABLE TO ANSWER QUESTIONS PT KNOWN TO THIS CM; LIVES W DAUGHTER AND SON, IS SEMI INDP IN CARE NEEDS, STATES NOW GOING TO [facility] AND STATES NO LONGER DRINKING, 'ACHES ALLOVER, DEHYDRATED,' STATES FAMILY IS SUPPORTIVE; NO PROV/HH. PT UNINSURED W SSI DISABLITY PENDING. DCP HOME, CM TO FOLLOW Addendum: 05/06/19 at 1932 by NIKIA GRANADO RN CM Amended: Links added.
[2019-05-06 21:30] VITALS: BP 137/76
[2019-05-07] VITALS: BP 123/62
[2019-05-07] MEDS: POTASSIUM CHLORIDE 20 MEQ ERTAB PO PRN ×2 (00:07→02:22)
[2019-05-07] MEDS ORDERED: ACETAMINOPHEN 325 MG TAB PO PRN ×2 (02:30)
[2019-05-07] MEDS ORDERED: ACETAMINOPHEN 325 MG TAB ONE (02:51)
[2019-05-07] MEDS: POTASSIUM CHLORIDE 10MEQ/100ML 10 MEQ/100 ML ML IV SCH (03:15)
[2019-05-07 04:00] VITALS: BP 115/65
[2019-05-07 05:52] LABS: HEMATOCRIT 27.4 % (36-48); MEAN CORPUSCULAR HEMOGLOBIN 27.9 pg (27.0-33.0); MEAN CORPUSCULAR VOLUME 89.8 fL (79-99); PLATELET COUNT (AUTO) 46 K/uL (130-400); RED BLOOD CELL COUNT(AUTO) 3.05 MIL/uL (4.00-5.50); RED CELL DISTRIBUTION WIDTH 23.8 % (11.0-15.5); WHITE BLOOD COUNT (AUTO) 3.8 K/uL (4.8-10.8)
[2019-05-07 06:25] LABS: ALBUMIN 2.1 g/dL (3.5-5.0); BILIRUBIN,TOTAL 2.8 mg/dL (0.2-1.0); CREATININE 0.9 mg/dL (0.5-1.5); MAGNESIUM 1.5 mg/dL (1.80-2.40); POTASSIUM 3.6 mmol/L (3.5-5.1); TOTAL PROTEIN, SERUM 7.2 g/dL (6.0-8.3)
[2019-05-07] MEDS: FAMOTIDINE/PF 20 MG/2 ML VIAL IV SCH (08:21)
[2019-05-07 08:36] LABS: BASOPHILS % (MANUAL) 1 % (0-2); EOSINOPHILS % (MANUAL) 7 % (1-6); LYMPHOCYTES % (MANUAL) 14 % (22-44); MONOCYTES % (MANUAL) 3 % (2-9); SEGMENTED NEUTROPHILS % 75 % (40-70)
[2019-05-07 08:38] LABS: MAN.DIFF COMMENT-IMPRESSION MANUAL DIFFERENTIAL; PLATELET MORPHOLOGY COMMENT DECREASED
[2019-05-07 08:52] VITALS: BP 125/68
[2019-05-07 12:00] VITALS: BP 135/69
[2019-05-07 16:15] VITALS: BP 125/67
--- NOTE | 2019-05-07 18:00 | NUR ---
INSTRUCTIONS DISCHARGE INSTRUCTIONS GIVEN TO PATIENT USING TEACH BACK. NO NEW PRESCRIPTIONS. F/U APPOINTMENT WILL BE MADE BY PATIENT DURING REGULAR BUSINESS HOURS. ALL PRINTED INFORMATION AND MD INSTRUCTIONS PLACED IN DISCHARGE PACKET. NO QUESTIONS OR CONCERNS VOICED. IV REMOVED WITH TIP INTACT. DIRECT PRESSURE APPLIED UNTIL BLEEDING CONTROLLED THEN SITE COVERED WITH GAUZE AND SECURED WITH A BAND-AID.
== END 2019-05-07 19:10 | disposition home or self-care (01) | DRG 641 ==
LOC: EDH 00:25 → EDHIP 00:26 → 3BH 21:11
PROVIDERS: ADMIT Internal Medicine; ATTEND Internal Medicine
DX: E87.6 Hypokalemia (principal); D61.818 Other pancytopenia; K76.6 Portal hypertension; M62.82 Rhabdomyolysis; R07.89 Other chest pain; K52.9 Noninfective gastroenteritis and colitis, unspecified; K70.30 Alcoholic cirrhosis of liver without ascites; Z83.3 Family history of diabetes mellitus; Z81.8 Family history of other mental and behavioral disorders
CPT/HCPCS: 36415; 80053; 80305; 81003; 82140; 82150; 82550; 82948; 83690; 83735; 84132; 84484; 85025; 85610; 85730; 93005; G0378; G0480; J0780; J2405; J3480; J3490; J7030

== ENCOUNTER 2019-06-12 20:16 | Inpatient (IN) | payer OTHER ==
[~2019-06-12] VITALS: Ht 157.5 cm; Wt 54.1 kg
[2019-06-12 20:53] LABS: BASOPHILS % (AUTO) 0.5 % (0.0-5.0); EOSINOPHILS % (AUTO) 1.3 % (0.0-8.0); HEMATOCRIT 29.7 % (36-48); LYMPHOCYTES % (AUTO) 23.8 % (21.0-51.0); MEAN CORPUSCULAR HEMOGLOBIN 30.6 pg (27.0-33.0); MEAN CORPUSCULAR VOLUME 95.8 fL (79-99); MONOCYTES % (AUTO) 18.7 % (3.0-13.0); NEUTROPHILS % (AUTO) 55.4 % (40.0-77.0); PLATELET COUNT (AUTO) 52 K/uL (130-400); RED CELL DISTRIBUTION WIDTH 24.7 % (11.0-15.5); WHITE BLOOD COUNT (AUTO) 3.9 K/uL (4.8-10.8)
[2019-06-12 21:03] LABS: CREATININE 0.9 mg/dL (0.5-1.5); POTASSIUM 3.1 mmol/L (3.5-5.1)
[2019-06-12 21:07] LABS: ALBUMIN 2.8 g/dL (3.5-5.0); BILIRUBIN,TOTAL 3.9 mg/dL (0.2-1.0); TOTAL PROTEIN, SERUM 8.2 g/dL (6.0-8.3)
[2019-06-12] MEDS ORDERED: ONDANSETRON HCL 4 MG/2 ML VIAL ONE (21:09)
[2019-06-12 21:26] LABS: INR 1.61 (0.85-1.15); PROTHROMBIN TIME 16.6 SEC (9.6-11.6)
[2019-06-12] MEDS ORDERED: LACTULOSE 20 GM/30 ML UDCUP ONE (21:43)
[2019-06-12] MEDS ORDERED: HYDRALAZINE HCL 20 MG/ML VIAL IV PRN (22:15)
[2019-06-12] MEDS: LACTULOSE 20 GM/30 ML UDCUP PO SCH (22:15)
[2019-06-12] MEDS ORDERED: POTASSIUM CHLORIDE 10MEQ/100ML 100 ML IV PRN (22:15)
[2019-06-12] MEDS ORDERED: LIDOCAINE HCL-MPF 1% 2ML VIAL IV PRN (22:15)
[2019-06-13] VITALS: BP 120/54
[2019-06-13] MEDS: POTASSIUM CHLORIDE 10% ELIXIR 20 MEQ/15 ML UDCUP PO PRN ×3 (00:59→05:20)
[2019-06-13 04:00] VITALS: BP 140/72
[2019-06-13 06:30] LABS: BASOPHILS % (AUTO) 0.8 % (0.0-5.0); EOSINOPHILS % (AUTO) 2.5 % (0.0-8.0); HEMATOCRIT 26.5 % (36-48); MEAN CORPUSCULAR HEMOGLOBIN 30.4 pg (27.0-33.0); MEAN CORPUSCULAR HGB CONC 31.7 g/dL (32.0-36.0); MONOCYTES % (AUTO) 19.5 % (3.0-13.0); NEUTROPHILS % (AUTO) 48.9 % (40.0-77.0); PLATELET COUNT (AUTO) 47 K/uL (130-400); RED BLOOD CELL COUNT(AUTO) 2.76 MIL/uL (4.00-5.50); RED CELL DISTRIBUTION WIDTH 24.7 % (11.0-15.5); WHITE BLOOD COUNT (AUTO) 3.5 K/uL (4.8-10.8)
[2019-06-13] MEDS: LACTULOSE 20 GM/30 ML UDCUP PO SCH ×3 (06:33→22:15)
[2019-06-13 06:47] LABS: CREATININE 0.8 mg/dL (0.5-1.5); POTASSIUM 4.2 mmol/L (3.5-5.1)
[2019-06-13 09:05] VITALS: BP 126/82
[2019-06-13] MEDS: FAMOTIDINE 20MG TAB 20 MG TAB PO SCH ×2 (09:14→21:01)
[2019-06-13 10:59] LABS: ALBUMIN 2.4 g/dL (3.5-5.0); BILIRUBIN,TOTAL 3.7 mg/dL (0.2-1.0); TOTAL PROTEIN, SERUM 7.5 g/dL (6.0-8.3)
--- NOTE | 2019-06-13 11:40 | NUR ---
PT WAS FOUND BY RT TECH IN FLOOR IN FRONT OF DOOR ENTRANCE, PT CONSCIOUS AND RECALL THAT SHE FALL BUT SHE DONT KNOW HOW OR WHY SHE FALL, PT VERBALIZED SHE HIT HER HEAD. V/S BP 133/74 HR 100. PT WAS PUT BACK IN BED, KYMBERLY FRANKSP EVALUATED THE PT AND INPATIENT SOC WAS STARTED. PT IS BEEN MONITOR.
[2019-06-13 12:00] VITALS: BP 124/66
[2019-06-13] MEDS ORDERED: GADODIAMIDE 10 MMOL/20 ML VIAL IV ONE (14:31)
[2019-06-13] MEDS ORDERED: PHARMACY COMMUNICATION MISC SCH (15:00)
[2019-06-13 16:33] VITALS: BP 126/62
[2019-06-13] MEDS ORDERED: LACTULOSE 20 GM/30 ML UDCUP PR SCH ×2 (16:45→20:00)
[2019-06-13 17:12] LABS: APPEARANCE,URINE Clear (CLEAR); BILIRUBIN,URINE Negative (NEGATIVE); COLOR,URINE Yellow (YELLOW); GLUCOSE, URINE (UA) Negative (NEGATIVE); KETONES,URINE Negative (NEGATIVE); LEUKOCYTE ESTERASE ,URINE Negative (NEGATIVE); NITRATE,URINE Negative (NEGATIVE); OCCULT BLOOD,URINE Negative (NEGATIVE); PH,URINE 6.5 (5.0-8.0); PROTEIN,URINE Negative (NEGATIVE)
[2019-06-13 17:21] LABS: BACTERIA,URINE Many /HPF (None Seen); RBC,URINE 0-1 /HPF (0-1); SQUAMOUS EPITHELIAL CELL,UR 0-2 /HPF (0-2); WBC,URINE 0-1 /HPF (0-1)
[2019-06-13 20:00] VITALS: BP 121/70
[2019-06-13] MEDS: LEVETIRACETAM 500 MG TABLET PO SCH (21:01)
[2019-06-13] MEDS ORDERED: HYDROMORPHONE HCL 0.5 MG/0.5 ML ML IVP ONE (23:15)
[2019-06-14 04:00] VITALS: BP 109/59
[2019-06-14] MEDS: LACTULOSE 20 GM/30 ML UDCUP PO SCH ×3 (06:15→22:08)
[2019-06-14 08:00] VITALS: BP 117/66
[2019-06-14] MEDS: FAMOTIDINE 20MG TAB 20 MG TAB PO SCH ×2 (09:05→22:07)
[2019-06-14] MEDS: LEVETIRACETAM 500 MG TABLET PO SCH ×2 (09:05→22:07)
[2019-06-14 11:35] VITALS: BP 121/65
[2019-06-14] MEDS ORDERED: ONDANSETRON HCL 4 MG/2 ML VIAL IVP PRN (12:30)
--- NOTE | 2019-06-14 14:02 | NUR ---
INITIAL Patient was living with her son, Rodney Braga, [phone] but most recently was living with her daughter, Dinora Jones, [phone]. No home services or DME. Patient needs help with ADL's and does not drive. Patient has no PCP. Pharmacy is [facility] located on [address]. DCP is undetermined at this time. Patient has no insurance or benefits. She is a [place] citizen and has worked in the . Patient was provided with community resources for post hospitalization follow up. Patient was also provided with Good RX card for prescriptions and educated on [employer] $4 medication program and [employer] $5 medication program. Patient is being assisted by [employer] for financial matters. Addendum: 06/14/19 at 1406 by MIKE SENIOR SS Amended: Links added.
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
[2019-06-14 16:00] VITALS: BP 129/65
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
[2019-06-14 20:00] VITALS: BP 116/75
[2019-06-14] MEDS ORDERED: RISPERIDONE 0.5 MG TABLET PO ONE (22:01)
[2019-06-15] VITALS: BP 130/70
[2019-06-15 03:58] VITALS: BP 108/62
[2019-06-15] MEDS: LACTULOSE 20 GM/30 ML UDCUP PO SCH ×3 (06:15→22:24)
[2019-06-15 07:30] VITALS: BP 120/69
[2019-06-15] MEDS: FAMOTIDINE 20MG TAB 20 MG TAB PO SCH ×2 (10:24→20:49)
[2019-06-15] MEDS: LEVETIRACETAM 500 MG TABLET PO SCH ×2 (10:24→20:49)
[2019-06-15] MEDS: RISPERIDONE 1 MG TABLET PO SCH ×2 (10:24→20:49)
[2019-06-15 11:00] VITALS: BP 92/49
[2019-06-15 16:00] VITALS: BP 123/62
[2019-06-15 19:00] VITALS: BP 120/69
[2019-06-15] MEDS ORDERED: IBUPROFEN 400 MG TABLET PO SCH (19:30)
[2019-06-15] MEDS ORDERED: IBUPROFEN 200 MG TAB PO PRN ×2 (19:30)
[2019-06-16] VITALS (7 sets, daily range): BP systolic 92–123; BP diastolic 49–75
[2019-06-16 03:55] LABS: BASOPHILS % (AUTO) 1.2 % (0.0-5.0); EOSINOPHILS % (AUTO) 3.7 % (0.0-8.0); HEMATOCRIT 25.3 % (36-48); MEAN CORPUSCULAR HEMOGLOBIN 30.7 pg (27.0-33.0); MEAN CORPUSCULAR HGB CONC 31.6 g/dL (32.0-36.0); MEAN CORPUSCULAR VOLUME 96.9 fL (79-99); MONOCYTES % (AUTO) 22.4 % (3.0-13.0); NEUTROPHILS % (AUTO) 40.5 % (40.0-77.0); PLATELET COUNT (AUTO) 51 K/uL (130-400); RED BLOOD CELL COUNT(AUTO) 2.61 MIL/uL (4.00-5.50); RED CELL DISTRIBUTION WIDTH 23.1 % (11.0-15.5); WHITE BLOOD COUNT (AUTO) 4.1 K/uL (4.8-10.8)
[2019-06-16 04:09] LABS: CREATININE 1.9 mg/dL (0.5-1.5)
[2019-06-16] MEDS: POTASSIUM CHLORIDE 20 MEQ ERTAB PO PRN ×4 (04:31→13:13)
[2019-06-16] MEDS: LACTULOSE 20 GM/30 ML UDCUP PO SCH ×3 (06:32→20:31)
--- NOTE | 2019-06-16 09:02 | NUR ---
APS JESSICA received call from Joan Perkins from intake. SW provided additional information to Ms. Perkins. Case will be assigned to Senior Technical Writer and Senior Technical Writer will follow up with SW. SW will continue to follow up with patient and APS Senior Technical Writer to ensure safe and appropriate discharge.
[2019-06-16] MEDS: RISPERIDONE 1 MG TABLET PO SCH ×2 (09:28→20:31)
[2019-06-16] MEDS: FAMOTIDINE 20MG TAB 20 MG TAB PO SCH ×2 (09:28→20:31)
[2019-06-16] MEDS: LEVETIRACETAM 500 MG TABLET PO SCH ×2 (09:28→20:31)
[2019-06-16] MEDS: SODIUM CHLORIDE 0.9% 1000ML 1,000 ML IV SCH (15:54)
--- NOTE | 2019-06-16 20:15 | NUR ---
Patients daughter here to visit.
--- NOTE | 2019-06-16 20:46 | NUR ---
Patient due meds given,patient is resting in bed at this time, awake and watching TV.
[2019-06-17 03:49] VITALS: BP 121/63
[2019-06-17 05:07] LABS: BASOPHILS % (AUTO) 1.4 % (0.0-5.0); EOSINOPHILS % (AUTO) 2.4 % (0.0-8.0); LYMPHOCYTES % (AUTO) 23.5 % (21.0-51.0); MEAN CORPUSCULAR HEMOGLOBIN 30.6 pg (27.0-33.0); MEAN CORPUSCULAR HGB CONC 31.5 g/dL (32.0-36.0); MEAN CORPUSCULAR VOLUME 97.1 fL (79-99); NEUTROPHILS % (AUTO) 52.4 % (40.0-77.0); PLATELET COUNT (AUTO) 44 K/uL (130-400); RED BLOOD CELL COUNT(AUTO) 2.78 MIL/uL (4.00-5.50); RED CELL DISTRIBUTION WIDTH 22.7 % (11.0-15.5); WHITE BLOOD COUNT (AUTO) 3.7 K/uL (4.8-10.8)
[2019-06-17 05:24] LABS: CREATININE 0.9 mg/dL (0.5-1.5); POTASSIUM 3.5 mmol/L (3.5-5.1)
[2019-06-17] MEDS: SODIUM CHLORIDE 0.9% 1000ML 1,000 ML IV SCH (05:37)
[2019-06-17] MEDS: LACTULOSE 20 GM/30 ML UDCUP PO SCH ×2 (05:38→14:28)
[2019-06-17 08:00] VITALS: BP 120/65
[2019-06-17] MEDS: LEVETIRACETAM 500 MG TABLET PO SCH (08:19)
[2019-06-17] MEDS: RISPERIDONE 1 MG TABLET PO SCH (08:19)
[2019-06-17] MEDS: FAMOTIDINE 20MG TAB 20 MG TAB PO SCH (08:19)
[2019-06-17] MEDS ORDERED: ACETAMINOPHEN 325 MG TAB PO PRN (11:15)
[2019-06-17] MEDS ORDERED: LEVE-43 PO (11:37)
[2019-06-17] MEDS ORDERED: RISP0.5T61 PO (11:39)
[2019-06-17] MEDS ORDERED: RISP0.2515 PO (11:39)
[2019-06-17 12:00] VITALS: BP 122/68
[2019-06-17 16:30] VITALS: BP 121/68
--- NOTE | 2019-06-17 17:27 | NUR ---
[facility] Screening Patient was screened by Nazario Keating [facility] Behavioral Health Screener for possible inpatient psychiatric hospitalization. Patient had voiced suicidal ideation with plan on 06/14/2019. Mr. Keating informed SW that patient does not criteria at this time for inpatient hospitalization but [facility] services will follow up with patient on 06/18/2019. Patient also has appointment for outpatient services set for 06/29/2019 at 8am with [facility].
--- NOTE | 2019-06-17 18:01 | NUR ---
APS Follow up Patient informed SW that Adult Protective Services Emergency Medicine Medical Director, Kadi Perkins had come to meet with her today and was going to follow up with family. SW attempted to contact Ms. Perkins to discuss if patient was safe to return home or alternative placement would be needed. Ms. Perkins did not answer. SW will follow up on 06/18/2019.
--- NOTE | 2019-06-17 18:23 | NUR ---
METAL COLOR RING WITH CLEAR STONE Addendum: 06/17/19 at 1825 by MIRIAM BENJAMIN RN Amended: Links added.
--- NOTE | 2019-06-17 18:35 | NUR ---
DISCHARGE INSTRUCTIONS GIVEN TO PATIENT, DAUGHTER AND SON AT BEDSIDE. MADE AWARE OF NEED TO FIND A PCP, LIST PROVIDED. AWARE OF NEW RX SENT TO [facility]. PATIENT AT THIS TIME DENIES SUICIDAL IDEATION. IV TO RIGHT FOREARM REMOVED. FAMILY MADE AWARE TO FOLLOW UP WITH DR. PERALES IN [address] MENDEZ IN ONE WEEK. PROVIDED WITH PHONE NUMBERS. SON STATES HE HAS AN APPOINTMENT TO TAKE HER TO [facility]. PATIENT AT THIS TIME AMBULATING IN ROOM, NO SIGNS AND SYMPTOMS OF ACUTE DISTRESS NOTED. WILL BE TRANSPORTED HOME BY FAMILY
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
== END 2019-06-17 18:52 | disposition home or self-care (01) | DRG 441 ==
LOC: EDH 20:16 → EDHIP 20:17 → OBSVTOIN 20:17 → UNDOADMOB 22:06 → EDHIP 22:06 → 4DH 23:55
PROVIDERS: ADMIT Family Medicine; ATTEND Family Medicine
PROC: 4A00X4Z Measurement of Central Nervous Electrical Activity, External Approach (ICD-10-PCS; principal; 2019-06-16)
DX: K72.90 Hepatic failure, unspecified without coma (principal); G93.41 Metabolic encephalopathy; R45.851 Suicidal ideations; K70.30 Alcoholic cirrhosis of liver without ascites; F29 Unspecified psychosis not due to a substance or known physiological condition; G40.909 Epilepsy, unspecified, not intractable, without status epilepticus; E87.6 Hypokalemia; Z91.14 Patient's other noncompliance with medication regimen; Z98.42 Cataract extraction status, left eye; Z98.41 Cataract extraction status, right eye; Z83.3 Family history of diabetes mellitus
CPT/HCPCS: 36415; 70450; 70553; 80048; 80053; 81001; 82140; 82270; 83540; 84132; 84484; 85025; 85610; 85730; 93005; 95816; A9579; G0378; J1170; J2405; J7030